=== PATIENT | male | born 1960 | race Caucasian/White ===

== ENCOUNTER 2017-03-29 20:07 | Emergency (ER) | payer OTHER ==
[~2017-03-29] VITALS: Ht 172.7 cm; Wt 70.0 kg
[~2017-03-29 20:07] MED LIST: SULF1TAB47 PO; TYLE3 PO; Z.0.NO CURRENT MEDS
[2017-03-29 20:17] VITALS: BP 126/77; PULSE 71; RESP 22; TEMP 98.5; O2SAT 100
[2017-03-29] MEDS ORDERED: ASPI81CH6 CHEW (20:22)
[2017-03-29] MEDS ORDERED: SODIUM CHLOR 0.9% 1000 ML INJ 1,000 ML IV ONE (20:31)
--- NOTE | 2017-03-29 20:35 | PD ---
HPI Chief Complaint: Alcohol/Drug Intoxication Time Seen by Provider: 20:31 Travel History International Travel<30 days: No Contact w/Intl Traveler<30days: No Traveled to known affect area: No History of Present Illness HPI 57-year-old male patient with history of no significant past medical issues, presents to the ER today because he apparently had been smoking marijuana and inhaled, and then had a syncopal episode for several minutes according to patient's family. He does not remember the whole episode. He just remembers feeling lightheaded he states. He denies any chest pains, shortness of breath, or any other symptoms. He states he is not a regular smoker. Modifying Factors: None Associated Signs & Symptoms: Syncopal episode while smoking marijuana Risk Factors: None PFSH Past Medical History Medical History: Denies Significant Hx Diminished Hearing: Yes (HUSLIA) Musculoskeletal: Yes (BACK PAIN) Immunizations Current: Yes Tetanus Vaccination: < 5 Years Influenza Vaccination: No Social History Alcohol Use: Yes (1 GLASS WINE DAILY) Tobacco Use: No (QUIT) Substance Use: No Allergies-Medications (Allergen,Severity, Reaction): Coded Allergies: No Known Allergies (Unverified Adverse Reaction, Unknown, 03/29/17) Reported Meds & Prescriptions Reported Meds & Active Scripts Active Reported Aspirin Low Dose (Aspirin) 81 Mg Chew 81 Mg CHEW DAILY Review of Systems Except as stated in HPI: all other systems reviewed are Neg Physical Exam Narrative GENERAL: Well-developed middle age male patient currently in mild distress. Awake and oriented 3. SKIN: Focused skin assessment warm/dry. HEAD: Atraumatic. Normocephalic. EYES: Pupils equal and round. No scleral icterus. No injection or drainage. ENT: No nasal bleeding or discharge. Mucous membranes pink and moist. NECK: Trachea midline. No JVD. Supple. CARDIOVASCULAR: Regular rate and rhythm. No murmur appreciated. RESPIRATORY: No accessory muscle use. Clear to auscultation. Breath sounds equal bilaterally. GASTROINTESTINAL: Abdomen soft, non-tender, nondistended. Hepatic and splenic margins not palpable. MUSCULOSKELETAL: No obvious deformities. No clubbing. No cyanosis. No edema. NEUROLOGICAL: Awake and alert. No obvious cranial nerve deficits. Motor grossly within normal limits. Normal speech. PSYCHIATRIC: Appropriate mood and affect; insight and judgment normal. Data Data Last Documented VS Vital Signs Date Time Temp Pulse Resp B/P (MAP) Pulse Ox O2 Delivery O2 Flow Rate FiO2 03/29/17 22:35 81 18 147/85 (105) 98 Room Air 03/29/17 20:17 98.5 Orders Orders Electrocardiogram (03/29/17 20:31) Complete Blood Count With Diff (03/29/17 20:31) Comprehensive Metabolic Panel (03/29/17 20:31) Magnesium (Mg) (03/29/17 20:31) Ckmb (Isoenzyme) Profile (03/29/17 20:31) Troponin I (03/29/17 20:31) Act Partial Throm Time (Ptt) (03/29/17 20:31) Prothrombin Time / Inr (Pt) (03/29/17 20:31) Urinalysis - C+S If Indicated (03/29/17 20:31) Chest, Single Ap (03/29/17 20:31) Ct Brain W/O Iv Contrast(Rout) (03/29/17 20:31) Ecg Monitoring (03/29/17 20:31) Iv Access Insert/Monitor (03/29/17 20:31) Oximetry (03/29/17 20:31) Sodium Chloride 0.9% Flush (Ns Flush) (03/29/17 20:45) Sodium Chlor 0.9% 1000 Ml Inj (Ns 1000 M (03/29/17 20:31) Orthostatic Vital Signs (03/29/17 20:31) Drug Screen, Random Urine (03/29/17 20:31) Alcohol (Ethanol) (03/29/17 20:31) Ed Discharge Order (03/29/17 22:50) Labs Laboratory Tests Test 03/29/17 20:40 03/29/17 21:35 03/29/17 21:42 White Blood Count 9.1 TH/MM3 Red Blood Count 4.82 MIL/MM3 Hemoglobin 14.6 GM/DL Hematocrit 42.8 % Mean Corpuscular Volume 88.8 FL Mean Corpuscular Hemoglobin 30.4 PG Mean Corpuscular Hemoglobin Concent 34.2 % Red Cell Distribution Width 13.6 % Platelet Count 291 TH/MM3 Mean Platelet Volume 7.6 FL Neutrophils (%) (Auto) 55.8 % Lymphocytes (%) (Auto) 33.4 % Monocytes (%) (Auto) 8.4 % Eosinophils (%) (Auto) 1.6 % Basophils (%) (Auto) 0.8 % Neutrophils # (Auto) 5.1 TH/MM3 Lymphocytes # (Auto) 3.0 TH/MM3 Monocytes # (Auto) 0.8 TH/MM3 Eosinophils # (Auto) 0.1 TH/MM3 Basophils # (Auto) 0.1 TH/MM3 CBC Comment DIFF FINAL Differential Comment Blood Urea Nitrogen 15 MG/DL Creatinine 1.07 MG/DL Random Glucose 90 MG/DL Total Protein 7.3 GM/DL Albumin 4.2 GM/DL Calcium Level 9.2 MG/DL Magnesium Level 2.1 MG/DL Alkaline Phosphatase 53 U/L Aspartate Amino Transf (AST/SGOT) 23 U/L Alanine Aminotransferase (ALT/SGPT) 30 U/L Total Bilirubin 0.5 MG/DL Sodium Level 139 MEQ/L Potassium Level 4.2 MEQ/L Chloride Level 103 MEQ/L Carbon Dioxide Level 23.1 MEQ/L Anion Gap 13 MEQ/L Estimat Glomerular Filtration Rate 71 ML/MIN Total Creatine Kinase 82 U/L Troponin I LESS THAN 0.02 NG/ML Ethyl Alcohol Level LESS THAN 3 MG/DL Urine Color YELLOW Urine Turbidity CLEAR Urine pH 7.5 Urine Specific [place] 1.019 Urine Protein 30 mg/dL Urine Glucose (UA) NEG mg/dL Urine Ketones 10 mg/dL Urine Occult Blood NEG Urine Nitrite NEG Urine Bilirubin NEG Urine Urobilinogen LESS THAN 2.0 MG/DL Urine Leukocyte Esterase NEG Urine RBC 2 /hpf Urine WBC 3 /hpf Urine Hyaline Casts 12 /lpf Urine Mucus FEW /lpf Microscopic Urinalysis Comment CULT NOT INDICATED Urine Opiates Screen NEG Urine Barbiturates Screen NEG Urine Amphetamines Screen NEG Urine Benzodiazepines Screen NEG Urine Cocaine Screen NEG Urine Cannabinoids Screen POS Prothrombin Time 11.4 SEC Prothromb Time International Ratio 1.1 RATIO Activated Partial Thromboplast Time 27.5 SEC MDM Medical Decision Making Medical Screen Exam Complete: Yes Emergency Medical Condition: Yes Medical Record Reviewed: Yes Interpretation(s) EKG shows sinus bradycardia rate of 56 bpm with no signs of acute ST changes, delta waves, or any QT prolongation. Laboratory Tests Test 03/29/17 20:40 03/29/17 21:35 03/29/17 21:42 Monocytes (%) (Auto) 8.4 % (0.0-8.0) Estimat Glomerular Filtration Rate 71 ML/MIN (>89) Troponin I LESS THAN 0.02 NG/ML Urine Protein 30 mg/dL (NEG-TRACE) Urine Ketones 10 mg/dL (NEG) Urine Mucus FEW /lpf (OCC) Urine Cannabinoids Screen POS (NEG) Last [address] 03/29/172030 Signed Impressions: Service Date/Time: Wednesday, March 29, 2017 20:50 - CONCLUSION: Negative noncontrast head CT. Alexx Finnegan MD Chest X-Ray 03/29/172030 Signed Impressions: Service Date/Time: Wednesday, March 29, 2017 21:09 - CONCLUSION: Normal one view chest x-ray. Alexx Finnegan MD Differential Diagnosis Syncope: Dysrhythmias versus orthostasis versus metabolic issues versus drug side effect Narrative Course Patient has no focal neurological deficits. EKG did not show significant dysrhythmias except for the fact that his heart rate slow low. He is fairly asystematic in the ER. Lab work did not show significant metabolic issues and cardiac enzymes are negative. CT of the brain is negative for any signs of acute processes. He has no focal neurological deficits. At this point, I have discussed the findings with the patient and have talked about observation admission for further evaluation of syncope versus released with follow-up to primary care physician and further workup for syncope as an outpatient. Patient states that he feels fine and would rather be released. There was no episodes of chest pains, shortness of breath, or other focal neurological deficits for the syncope. He is fairly healthy. My plan would be to release him at this point as per discussion and he should return for any worsening in symptoms. Patient states understanding. Diagnosis Primary Impression: Syncope Additional Instructions: He should avoid any further marijuana use at this time. Follow-up with your primary care physician for further evaluation. Disposition: 01 DISCHARGE HOME Condition: Stable Karo Morocho MD Mar 29, 2017 20:34
[2017-03-29] MEDS ORDERED: SODIUM CHLORIDE 0.9% FLUSH 10 ML FLUSH IVF PRN (20:45)
--- NOTE | 2017-03-29 21:02 | RADRPT ---
EXAM DATE/TIME: 03/29/2017 20:50 [facility] COMPARISON: No previous studies available for comparison. INDICATIONS : Syncope. RADIATION DOSE: 56.35 CTDIvol (mGy) MEDICAL HISTORY : None SURGICAL HISTORY : None. ENCOUNTER: Initial ACUITY: 1 day PAIN SCALE: 0/10 LOCATION: cranial TECHNIQUE: Multiple contiguous axial images were obtained of the head. Using automated exposure control and adj ustment of the mA and/or kV according to patient size, radiation dose was kept as low as reasonably a chievable to obtain optimal diagnostic quality images. DICOM format image data is available electro nically for review and comparison. FINDINGS: CEREBRUM: The ventricles are normal for age. No evidence of midline shift, mass lesion, hemorrhage or acute in farction. No extra-axial fluid collections are seen. POSTERIOR FOSSA: The cerebellum and brainstem are intact. The 4th ventricle is midline. The cerebellopontine angle i s unremarkable. EXTRACRANIAL: The visualized portion of the orbits is intact. SKULL: The calvaria is intact. No evidence of skull fracture. CONCLUSION: Negative noncontrast head CT. Alexx Finnegan MD on March 29, 2017 at 20:59 Board Certified Radiologist. This report was verified electronically.
[2017-03-29 21:05] VITALS: BP_SYST 133; BP_SYST 137; BP_SYST 141; BP_DIAS 103; BP_DIAS 110; BP_DIAS 90; RESP 18
[2017-03-29 21:09] LABS: AUTOMATED NEUTROPHIL # 5.1 TH/MM3 (1.8-7.7); BASOPHIL # 0.1 TH/MM3 (0-0.2); BASOPHIL % 0.8 % (0.0-2.0); EOSINOPHIL # 0.1 TH/MM3 (0-0.4); EOSINOPHIL % 1.6 % (0.0-4.0); HEMATOCRIT 42.8 % (39.0-51.0); HEMOGLOBIN 14.6 GM/DL (13.0-17.0); LYMPH % 33.4 % (9.0-44.0); MEAN CELL VOLUME 88.8 FL (80.0-100.0); MEAN CORPUSCULAR HEMOGLOBIN 30.4 PG (27.0-34.0); MEAN CORPUSCULAR HGB CONC 34.2 % (32.0-36.0); MEAN PLATELET VOLUME 7.6 FL (7.0-11.0); MONO % 8.4 % (0.0-8.0); MONOCYTE # 0.8 TH/MM3 (0-0.9); NEUT % 55.8 % (16.0-70.0); PLATELET COUNT 291 TH/MM3 (150-450); RED BLOOD COUNT 4.82 MIL/MM3 (4.50-5.90); RED CELL DISTRIBUTION WIDTH 13.6 % (11.6-17.2); WHITE BLOOD COUNT 9.1 TH/MM3 (4.0-11.0)
--- NOTE | 2017-03-29 21:21 | RADRPT ---
EXAM DATE/TIME: 03/29/2017 21:09 [facility] COMPARISON: No previous studies available for comparison. INDICATIONS : Shortness of breath. MEDICAL HISTORY : Asthma. SURGICAL HISTORY : None. ENCOUNTER: Initial ACUITY: 1 day PAIN SCORE: 0/10 LOCATION: Bilateral chest FINDINGS: A single view of the chest demonstrates the lungs to be symmetrically aerated without evidence of mas s, infiltrate or effusion. The cardiomediastinal contours are unremarkable. Osseous structures are intact. CONCLUSION: Normal one view chest x-ray. Alexx Finnegan MD on March 29, 2017 at 21:18 Board Certified Radiologist. This report was verified electronically.
[2017-03-29 21:31] LABS: ALT (GPT) 30 U/L (12-78)
[2017-03-29 21:40] LABS: ALBUMIN 4.2 GM/DL (3.4-5.0); ALKALINE PHOSPHATASE 53 U/L (45-117); AST (GOT) 23 U/L (15-37); BICARBONATE 23.1 MEQ/L (21.0-32.0); BLOOD UREA NITROGEN 15 MG/DL (7-18); CALCIUM 9.2 MG/DL (8.5-10.1); CHLORIDE 103 MEQ/L (98-107); CREATININE 1.07 MG/DL (0.60-1.30); GLOMERULAR FILTRATION RATE 71 ML/MIN (>89); GLUCOSE,RANDOM 90 MG/DL (74-106); MAGNESIUM 2.1 MG/DL (1.5-2.5); SODIUM (NA) 139 MEQ/L (136-145); TOTAL BILIRUBIN ADULT 0.5 MG/DL (0.2-1.0); TOTAL PROTEIN 7.3 GM/DL (6.4-8.2); TROPONIN I LESS THAN 0.02 NG/ML (0.02-0.05)
[2017-03-29 22:10] LABS: BILIRUBIN, URINE NEG (NEG); BLOOD, URINE NEG (NEG); GLUCOSE,URINE NEG (NEG); HYALINE CAST, URINE 12 /lpf (RARE); KETONE, URINE 10 mg/dL (NEG); MUCUS URINE FEW /lpf (OCC); NITRITE,URINE NEG (NEG); PH, URINE 7.5 (5.0-8.5); URINE COLOR YELLOW (YELLW/STRAW); URINE LEUKOCYTE ESTERASE NEG (NEG)
[2017-03-29 22:35] VITALS: BP 147/85; PULSE 81; RESP 18; O2SAT 98
[2017-03-29 22:46] LABS: INTERNATIONAL NORMALIZED RATIO 1.1 RATIO; PROTHROMBIN TIME - PATIENT 11.4 SEC (9.8-11.6)
--- NOTE | 2017-03-30 12:06 | EKG ---
Date Performed: 03/29/2017 Time Performed: 20:59:15 PTAGE: 57 years EKG: SINUS BRADYCARDIA BORDERLINE ECG NO PREVIOUS TRACING DOCTOR: Panchito Stiles Interpretating Date/Time 03/30/2017 12:04:58
== END 2017-03-29 23:33 | disposition home or self-care (01) ==
LOC: NEPC 20:07
DX: R55 Syncope and collapse (principal); F12.90 Cannabis use, unspecified, uncomplicated; Z79.82 Long term (current) use of aspirin
CPT/HCPCS: 70450; 71045; 80053; 80307; 81001; 82550; 83735; 84484; 85025; 85610; 85730; 93005; 96360; 99285; J7030